=== PATIENT | male | born 1945 | race Caucasian/White ===

== ENCOUNTER → 2016-03-21 | Outpatient (CLI) | payer OTHER ==
[~2016-03-21] MED LIST: ASPEC325 PO; ATOR-22 PO; METO25TA3 PO; MULT-506 PO; OMEG10007 PO; PRLSR20 PO
[2016-03-21 10:22] LABS: BASO % 0.2 %; BASO ABS # 0.01 K/uL (0-0.2); COMPLETE YES; EOS % 1.8 %; HEMATOCRIT 44.5 % (42-52); IG% 0.2 %; LYMPH % 23.2 %; LYMPH ABS # 1.45 K/uL (1.2-3.4); MEAN CELL VOLUME 96.7 fL (80-100); MEAN CORPUSCULAR HEMOGLOBIN 32.8 pg (25-34); MEAN CORPUSCULAR HGB CONC 33.9 g/dl (32-36); MEAN PLATELET VOLUME 9.7 fL (7.4-10.4); MONO % 13.5 %; NEUT % 61.1 %; PLATELET COUNT 175 K/uL (130-400); WHITE BLOOD COUNT 6.24 K/uL (4.8-10.8)
[2016-03-21 11:35] LABS: ALKALINE PHOSPHATASE 90 U/L (45-117); ALT/SGPT 38 U/L (12-78); AST/SGOT 20 U/L (15-37); BLOOD UREA NITROGEN 15 mg/dl (7-18); BUN/CREATININE RATIO 13.5 (10-20); CALCIUM 9.4 mg/dl (8.5-10.1); CARBON DIOXIDE 28 mmol/L (21-32); CHLORIDE 106 mmol/L (98-107); GLUCOSE 97 mg/dl (70-99); POTASSIUM 4.2 mmol/L (3.5-5.1); SODIUM 142 mmol/L (136-145)
[2016-03-21 11:40] LABS: ALB/GLOB RATIO 1.1 (0.9-2); C-REACTIVE PROTEIN < 0.29 mg/dl (0-0.29)
== END | disposition home or self-care (01) ==
LOC: C.LAB1850 09:41
PROVIDERS: ATTEND Internal Medicine
DX: R10.31 Right lower quadrant pain (principal)

== ENCOUNTER → 2016-04-17 | Outpatient (CLI) | payer OTHER ==
[2016-04-17 13:16] LABS: CHOLESTEROL/HDL RATIO 2.1; THYROID STIMULATING HORMONE 1.24 uIu/ml (0.300-4.500)
[2016-04-17 13:20] LABS: ESTIMATED AVERAGE GLUCOSE 117 mg/dl; HA1C FLAG Normal (Normal)
== END | disposition home or self-care (01) ==
LOC: C.LABBFT 09:51
PROVIDERS: ATTEND Internal Medicine
DX: I10 Essential (primary) hypertension (principal); R73.9 Hyperglycemia, unspecified; E03.9 Hypothyroidism, unspecified

== ENCOUNTER → 2016-04-22 | Outpatient (CLI) | payer OTHER ==
--- NOTE | 2016-04-30 11:10 | CODING QUERY MEDICAL NECESSITY ---
SUPPORTING DIAGNOSIS NEEDED Dr. Koenig, A supporting diagnosis is required for the test/procedure performed on this patient in order for us to be reimbursed by the patient's insurance. Please provide a supporting diagnosis for the following test/procedure listed below next to the test name along with your signature. *If there is no additional diagnosis for this patient that would support the following test/procedure please document that below next to the test/procedure. Test(s)/Procedure(s) that require a supporting diagnosis: * ([id number]) VITAMIN D ASSAY DIAGNOSIS: DATE OF SERVICE: 04/22/16 Provider Signature: Date: Thank you Tomer Mathews [facility] Information Management Once completed, please kindly fax back to [phone] For questions please call [phone]
== END | disposition home or self-care (01) ==
LOC: C.LABBFT 12:27
PROVIDERS: ATTEND Internal Medicine
DX: R26.89 Other abnormalities of gait and mobility (principal)

== ENCOUNTER → 2016-05-14 | Outpatient (CLI) | payer OTHER ==
[2016-05-15 17:11] LABS: ALBUMIN 3.8 G/DL (3.8-4.8); GAMMA GLOBULIN 0.9 G/DL (0.8-1.7); TOTAL PROTEIN 6.6 G/DL (6.2-8.3)
== END | disposition home or self-care (01) ==
LOC: C.LAB1850 08:12
PROVIDERS: ATTEND Psychiatry & Neurology Neurology
DX: G62.9 Polyneuropathy, unspecified (principal)

== ENCOUNTER → 2016-06-25 | Outpatient (CLI) | payer OTHER ==
[~2016-06-25] VITALS: Ht 181.6 cm; Wt 95.9 kg
[2016-06-25 14:33] VITALS: BP 142/80; PULSE 70; Ht 181.6 cm; Wt 95.9 kg
== END | disposition home or self-care (01) ==
LOC: C.NEUR 13:56
PROVIDERS: ATTEND Internal Medicine Pulmonary Disease
DX: G47.30 Sleep apnea, unspecified (principal)

== ENCOUNTER → 2016-07-24 | Outpatient (CLI) | payer OTHER ==
--- NOTE | 2016-07-26 16:25 | POLYSOMNOGRAPH REPORT ---
CLINICAL DATA: A 70-year-old male with a BMI of 21.85 referred by myself and Dr. Koenig. He has sleep apnea, documented prior to starting on Medicare. His sleep apnea was severe. He has been on auto CPAP through [facility]. In order to qualify for supplies, he needed documentation of sleep apnea. On the evening of 07/24/2016, a home sleep apnea test was performed using a Hardin type 3 monitor without CPAP. RECORDING RESULTS: Total recording time was 10 hours. The patient's monitoring time and estimated sleep time was 6.5 hours. RESPIRATORY DATA: Severe sleep apnea was documented. The DANA was 30. There were 121 obstructive and 5 mixed apneic episodes. There were 69 hypopneic episodes. The longest respiratory event was 87 seconds. OXIMETRY DATA: Severe hypoxemia was seen. Oxygen eliud was 64%. Mean saturation was 91%. Time below 89% was 77 minutes. HEART RATE DATA: Heart rates ranged from 55-67 beats per minute. SNORING DATA: Loud snoring was recorded throughout the entire night. IMPRESSION: Severe sleep apnea/hypopnea with an respiratory event index of 30 with severe nocturnal hypoxemia. RECOMMENDATIONS: The patient should continue [facility] auto CPAP. [facility]
== END | disposition home or self-care (01) ==
LOC: C.NEUR 08:47
PROVIDERS: ATTEND Internal Medicine Pulmonary Disease
DX: G47.30 Sleep apnea, unspecified (principal)

== ENCOUNTER → 2016-07-30 | Outpatient (CLI) | payer OTHER ==
[~2016-07-30] VITALS: Ht 181.6 cm; Wt 95.6 kg
[2016-07-30 15:45] VITALS: BP 135/92; PULSE 77; Ht 181.6 cm; Wt 95.6 kg
== END | disposition home or self-care (01) ==
LOC: C.NEUR 13:58
PROVIDERS: ATTEND Internal Medicine Pulmonary Disease
DX: G47.30 Sleep apnea, unspecified (principal); L25.9 Unspecified contact dermatitis, unspecified cause

== ENCOUNTER → 2016-09-16 | Outpatient (CLI) | payer OTHER ==
[~2016-09-16] MED LIST changes: +OPTIRAY 320 IV PRN
--- NOTE | 2016-09-16 12:35 | DIAGNOSTIC IMAGING REPORT ---
ABD/PELVIS IV AND ORAL CONT HISTORY:69 [id number] Lymph node [id number] Abdominal pain, chronic, righ COMPARISON: 03/08/2016 and 05/30/2006. TECHNIQUE: Multiple axial CT images of the abdomen and pelvis were obtained following the intravenous administration of 116 mL Optiray 320. Oral contrast was also used. FINDINGS: There is minimal dependent bibasilar atelectasis. No gross pneumoperitoneum. Inferior cardiac chambers are unremarkable. 7 x 6 mm low attenuating lesion of the posterior right hepatic lobe is unchanged and too small to characterize however would statistically favor a cyst or hemangioma. The spleen, pancreas, adrenal glands appear unremarkable. There is a hyperattenuating focus seen near the gallbladder fundus which suggests focal enhancing adenomyomatosis best seen on the coronal images, unchanged from comparison dated 03/08/2016. Low attenuating lesions of the kidneys bilaterally are unchanged and suggest cysts, largest in the midpole right kidney measuring 2.3 cm. No renal calculi or hydronephrosis. Prostate is mildly enlarged. Urinary bladder is unremarkable. The abdominal aorta is normal in course and caliber. No bulky retroperitoneal adenopathy. Mildly prominent lymph node of the left mesentery, 9 x 5 mm appears similar from comparison study where it measured 6 x 8 mm. There is minimal stranding of the mesentery within this distribution which also appears unchanged. No bowel obstruction. Moderate volume of formed stool is present within the rectal vault. There are a few scattered noninflamed colonic diverticula. Normal appendix. Soft tissues are within normal limits. Bones are intact. IMPRESSION: 1. Unchanged mildly prominent nonenlarged lymph node of the left mid mesentery with a degree of surrounding inflammatory stranding may reflect subtle mesenteric panniculitis within the appropriate clinical setting. No bulky or pathologic adenopathy identified within the abdomen or pelvis. 2. Suggested fundal adenomyomatosis of the gallbladder. 3. Colonic diverticulosis without diverticulitis. 4. Normal appendix. The above report was generated using voice recognition software. It may contain grammatical, syntax or spelling errors. Electronically signed by: Jerome العلي 09/16/2016 12:34 PM Dictated Date/Time: 09/16/2016 12:26 PM
== END | disposition home or self-care (01) ==
LOC: C.CTS 10:34
PROVIDERS: ATTEND Internal Medicine
DX: R59.9 Enlarged lymph nodes, unspecified (principal); R10.31 Right lower quadrant pain

== ENCOUNTER → 2016-10-14 | Outpatient (CLI) | payer OTHER ==
[~2016-10-14] MED LIST changes: -OPTIRAY 320 IV PRN
[2016-10-14 12:42] LABS: ESTIMATED AVERAGE GLUCOSE 120 mg/dl; HA1C FLAG Normal (Normal); PROSTATE SPECIFIC ANTIGEN 2.66 ng/ml (0.000-4.000); THYROID STIMULATING HORMONE 1.9 uIu/ml (0.300-4.500)
== END | disposition home or self-care (01) ==
LOC: C.LABBFT 10:43
PROVIDERS: ATTEND Nurse Practitioner Adult Health
DX: D48.5 Neoplasm of uncertain behavior of skin (principal); N20.0 Calculus of kidney; N34.2 Other urethritis; N40.0 Benign prostatic hyperplasia without lower urinary tract symptoms; Z12.5 Encounter for screening for malignant neoplasm of prostate; R73.9 Hyperglycemia, unspecified; E03.9 Hypothyroidism, unspecified; I10 Essential (primary) hypertension; E78.5 Hyperlipidemia, unspecified

== ENCOUNTER → 2016-10-22 | Outpatient (CLI) | payer OTHER ==
[2016-10-22 17:39] LABS: URINE APPEARANCE CLEAR (CLEAR); URINE BILIRUBIN NEG (NEG); URINE COLOR YELLOW; URINE EPITHELIAL CELL AUTO 0-5 /lpf (0-5); URINE NITRITE NEG (NEG); URINE PH 5.5 (4.5-7.5); URINE SPECIFIC GRAVITY 1.012 (1.000-1.030); UROBILINOGEN NEG (NEG); ZZUR CULT IF INDIC CLEAN CATCH NO
[2016-10-22 17:51] LABS: MANUAL MICROSCOPIC REQUIRED? NO; REVIEW REQ? NO
== END | disposition home or self-care (01) ==
LOC: C.LABBFT 17:35
PROVIDERS: ATTEND Internal Medicine
DX: N41.9 Inflammatory disease of prostate, unspecified (principal)

== ENCOUNTER → 2017-04-09 | Outpatient (CLI) | payer OTHER | END | disposition home or self-care (01) | LOC: C.PATHSPEC 16:39 | PROVIDERS: ATTEND Dermatology | DX: L30.8 Other specified dermatitis (principal) ==

== ENCOUNTER → 2017-06-04 | Outpatient (CLI) | payer OTHER ==
[2017-06-04 17:14] LABS: BASO % 0.4 %; BASO ABS # 0.02 K/uL (0-0.2); EOS % 2.8 %; EOS ABS # 0.14 K/uL (0-0.5); HEMATOCRIT 42.7 % (42-52); HEMOGLOBIN 14.3 g/dL (14.0-18.0); IG# 0.01 K/uL (0.00-0.02); LYMPH ABS # 1.36 K/uL (1.2-3.4); MEAN CELL VOLUME 98.2 fL (80-100); MEAN CORPUSCULAR HEMOGLOBIN 32.9 pg (25-34); MEAN CORPUSCULAR HGB CONC 33.5 g/dl (32-36); MEAN PLATELET VOLUME 9.8 fL (7.4-10.4); MONO % 15.3 %; MONO ABS # 0.77 K/uL (0.11-0.59); NEUT % 54.3 %; NEUT ABS # 2.74 K/uL (1.4-6.5); PLATELET COUNT 178 K/uL (130-400); RED CELL DISTRIBUTION WIDTH CV 13.2 % (11.5-14.5); RED CELL DISTRIBUTION WIDTH SD 47.3 fL (36.4-46.3); WHITE BLOOD COUNT 5.04 K/uL (4.8-10.8)
[2017-06-04 17:38] LABS: ALBUMIN 3.6 gm/dl (3.4-5.0); ALT/SGPT 34 U/L (12-78); AST/SGOT 24 U/L (15-37); BLOOD UREA NITROGEN 14 mg/dl (7-18); CALCIUM 9.3 mg/dl (8.5-10.1); CARBON DIOXIDE 29 mmol/L (21-32); CREATININE 1.11 mg/dl (0.60-1.40); GLUCOSE 86 mg/dl (70-99); POTASSIUM 4.2 mmol/L (3.5-5.1); SODIUM 138 mmol/L (136-145)
[2017-06-04 17:48] LABS: ALKALINE PHOSPHATASE 90 U/L (45-117); TOTAL PROTEIN 7.1 gm/dl (6.4-8.2)
[2017-06-05 06:43] LABS: HEMOGLOBIN A1C 5.8 % (4.5-5.6)
== END | disposition home or self-care (01) ==
LOC: C.LABBFT 12:41
PROVIDERS: ATTEND Internal Medicine
DX: R73.01 Impaired fasting glucose (principal); E03.9 Hypothyroidism, unspecified

== ENCOUNTER → 2017-06-12 | Outpatient (CLI) | payer OTHER | END | disposition home or self-care (01) | LOC: C.LABBFT 12:40 | PROVIDERS: ATTEND Internal Medicine | DX: I25.10 Atherosclerotic heart disease of native coronary artery without angina pectoris (principal) ==

== ENCOUNTER → 2017-06-23 | Outpatient (CLI) | payer OTHER ==
[~2017-06-23] MED LIST changes: +OPTIRAY 320 IV PRN
--- NOTE | 2017-06-23 15:22 | DIAGNOSTIC IMAGING REPORT ---
CT ABD/PELVIS IV AND ORAL CONT CLINICAL HISTORY: R59.0 Abdominal lymphadenopathy CTS COMPARISON STUDY: 09/16/2016 TECHNIQUE: Following the IV administration of 120 mL of Optiray-320, CT scan of the abdomen and pelvis was performed from the lung bases to the proximal femurs. Images are reviewed in the axial, sagittal, and coronal planes. IV contrast was administered without complication. A dose lowering technique was utilized adhering to the principles of ALARA. CT DOSE: 970.71 mGycm FINDINGS: Lower chest: The heart is normal in size and configuration, without pericardial effusion. The lung bases and pleural spaces are clear. There is a tiny hiatal hernia Liver: Is a stable 5 mm hypodensity within the right hepatic lobe Gallbladder: Cholelithiasis. No evidence of pericholecystic infiltration Spleen: Normal in size and attenuation. Pancreas: Unremarkable. Adrenal glands: Unremarkable. Kidneys: There is a 9 mm left renal cyst. There are right renal cysts measuring 21 mm and 15 mm. There is no hydronephrosis. Bowel: There are no transition zones indicate bowel obstruction. The appendix appears normal. There is no acute diverticulitis. Peritoneum: There is no intraperitoneal free air or abdominal ascites. Vasculature: The abdominal aorta is normal in course and caliber. Adenopathy: None. Pelvic viscera: The bladder, and pelvic viscera are unremarkable. Skeletal structures: No destructive osseous lesions are seen. IMPRESSION: 1. No acute intra-abdominal or pelvic findings 2. No evidence of pathologic adenopathy 3. Cholelithiasis 4. No evidence of bowel obstruction. No evidence of free air 5. Normal appendix Electronically signed by: Boone Weiss M.D. 06/23/2017 3:21 PM Dictated Date/Time: 06/23/2017 3:15 PM
== END | disposition home or self-care (01) ==
LOC: C.CTS 13:36
PROVIDERS: ATTEND Internal Medicine
DX: R59.0 Localized enlarged lymph nodes (principal)